=== PATIENT | male | born 1985 | race Caucasian/White ===

== ENCOUNTER 2017-01-09 23:05 | Emergency (ER) | payer SELFPAY ==
[~2017-01-09] VITALS: Ht 182.8 cm; Wt 97.5 kg
[~2017-01-09 23:05] MED LIST: ANAPROX275 MG PO; BACTRIM DS 8001 TA1 PO; DOXYCYCLINE100 M2 PO; MOTRIN PO; PEN-VEE K500 MG PO; ROBITUSSIN AC 110 ML PO; TRAMADOL HCL50 MG PO; TYLENOL W/CODEI1 TA2 PO; ZITHROMAX250 MG PO
[2017-01-09] MEDS ORDERED: CEPHALEXIN500 M1 PO (23:16)
== END 2017-01-10 03:20 | disposition home or self-care (01) ==
LOC: ED 23:05
DX: T23.222A Burn of second degree of single left finger (nail) except thumb, initial encounter (principal); F17.200 Nicotine dependence, unspecified, uncomplicated; X08.8XXA Exposure to other specified smoke, fire and flames, initial encounter; Y93.89 Activity, other specified; Y92.9 Unspecified place or not applicable; Y99.9 Unspecified external cause status

== ENCOUNTER 2019-07-17 10:55 | Emergency (ER) | payer BC ==
[~2019-07-17] VITALS: Ht 182.8 cm; Wt 102.1 kg
[~2019-07-17 10:55] MED LIST changes: +CEPHALEXIN500 M1 PO
[2019-07-17] MEDS ORDERED: PREDNISONE20 M1 PO (11:26)
[2019-07-17] MEDS ORDERED: AMOXICILLIN500 M2 PO (11:26)
== END 2019-07-17 11:47 | disposition home or self-care (01) ==
LOC: ED 10:55
DX: J32.9 Chronic sinusitis, unspecified (principal); J40 Bronchitis, not specified as acute or chronic; F17.200 Nicotine dependence, unspecified, uncomplicated; Z79.2 Long term (current) use of antibiotics

== ENCOUNTER → 2023-06-13 | Outpatient (CLI) | payer BC ==
[~2023-06-13] MED LIST changes: +AMOXICILLIN500 M2 PO; +PREDNISONE20 M1 PO
[2023-06-13 12:10] LABS: HEMATOCRIT 46.3 % (42.0-52.0); MEAN CELL VOLUME 83.3 fl (80.0-94.0); MEAN CORPUSCULAR HGB 27.2 pg (27.0-31.0); MEAN CORPUSCULAR HGB CONC 32.6 g/dl (33.0-37.0); MEAN PLATELET VOLUME 10.5 fl (9.6-12.3); RED BLOOD COUNT 5.56 10*6/uL (4.50-5.90); RED CELL DISTRI WIDTH 14.5 % (0-14.5); WHITE BLOOD COUNT 14.5 10*3/uL (4.8-10.8)
[2023-06-13 12:49] LABS: ALKALINE PHOSPHATASE 125 U/L (46-116); BUN 11 mg/dl (9-23); CHLORIDE 106 mmol/L (98-107); CHOLESTEROL 211 mg/dL (<200); LDL CHOLESTEROL 120 mg/dL (9-159); POTASSIUM 3.8 mmol/L (3.4-5.1); SGPT/ALT 53 U/L (5-49); TOTAL PROTEIN 7.2 gm/dL (6.0-8.0); TRIGLYCERIDES 180 mg/dl (<150)
[2023-06-13 12:51] LABS: VITAMIN D, 25-HYDROXY 33.6 ng/mL (30-100)
== END | disposition home or self-care (01) ==
LOC: LAB 11:41
PROVIDERS: ATTEND Family Medicine
DX: Z00.00 Encounter for general adult medical examination without abnormal findings (principal); E78.00 Pure hypercholesterolemia, unspecified; E55.9 Vitamin D deficiency, unspecified; R53.83 Other fatigue; G56.03 Carpal tunnel syndrome, bilateral upper limbs